=== PATIENT | male | born 1970 | race Asian ===

== ENCOUNTER 2018-07-17 01:10 | Emergency (ER) | payer OTHER ==
[~2018-07-17] VITALS: Ht 167.6 cm; Wt 68.0 kg
--- NOTE | ~2018-07-17 | EKG ---
[address] [address] ELECTROCARDIOGRAM REPORT Name: MELBA TAVAREZ Room #: DEP Fidel#: [id number] Admission: 07/17/18 Attend Phys: Discharge: 07/17/18 Date of : 68 Report #: [id number] THIS REPORT FOR: //name// [facility] ED Test Date: 2018-07-17 Test Time: 01:13:59 Pat Name: MELBA TAVAREZ Department: Room: Gender: Assistant Associate Professor: KARUNA : 1970 Requested By: Neel Marcelo Order Number: [id number] MD: Marquis Medina Measurements Intervals [place] Rate: 83 P: 30 NV: 142 QRS: 38 QRSD: 94 T: 22 QT: 374 QTc: 440 Interpretive Statements Sinus rhythm Probable left atrial enlargement No previous ECG available for comparison Electronically Signed On 07-17-2018 17:42:31 CDT by Marquis Medina [email or web address] <ELECTRONICALLY SIGNED> By: Marquis Medina MD 07/17/18 [id number] MD ERLIN Flores
[2018-07-17] MEDS ORDERED: ASPIRIN325 PO (01:20)
[2018-07-17 01:34] LABS: ABSOLUTE NEUTROPHILS 5.1 thou/uL (1.4-8.2); BASOPHILS 1.1 % (0.0-2.0); EOSINOPHILS 3.7 % (0.0-3.0); HEMATOCRIT 49.1 % (42.0-52.0); HEMOGLOBIN 16.6 gm/dL (14.0-18.0); LYMPHOCYTES 39.1 % (24.0-44.0); MCH 32.2 pg (26.0-34.0); MCHC 33.8 g/dL (28.0-37.0); MCV 95.2 fL (80.0-100.0); MONOCYTES 9.9 % (1.0-8.0); PLATELET COUNT 205 thou/uL (150-400); POLYS 46.2 % (36.0-66.0); RBC 5.15 mil/uL (4.50-6.00); WBC 11.1 thou/uL (4.0-11.0)
[2018-07-17 01:41] LABS: ANION GAP 9 mmol/L (7-16); BUN 14 mg/dL (7-18); CHLORIDE 103 mmol/L (98-107); CO2 28 mmol/L (21-32); GLUCOSE 107 mg/dL (74-106); POTASSIUM 3.7 mmol/L (3.5-5.1); SODIUM 140 mmol/L (136-145)
[2018-07-17 01:49] LABS: SGOT 26 U/L (15-37); SGPT 57 U/L (30-65); TOTAL BILIRUBIN 0.5 mg/dL (<0.1-1.0); TOTAL PROTEIN 8.4 g/dL (6.4-8.2); TROPONIN-I <0.06 ng/mL (<0.06)
[2018-07-17] MEDS ORDERED: NORVASC5 MG PO (01:58)
[2018-07-17 02:07] VITALS: BP 146/101
== END 2018-07-17 02:09 | disposition home or self-care (01) ==
LOC: ER 01:10
PROVIDERS: Emergency Medicine
DX: R06.02 Shortness of breath (principal); I10 Essential (primary) hypertension